=== PATIENT | male | born 1945 | race Two or more races ===

== ENCOUNTER 2023-05-11 18:23 | Inpatient (IN) | payer OTHER ==
[~2023-05-11] VITALS: Ht 177.8 cm; Wt 105.2 kg
[2023-05-11 19:00] VITALS: PULSE 79
[2023-05-11 19:21] LABS: Basophils # (auto) 0.1 10 ^3/uL (0-0.2); Basophils % (auto) 0.5 % (0.0-2.0); Eosinophils # (auto) 0.1 10 ^3/uL (0-0.8); Eosinophils % (auto) 1.4 % (0.0-7.0); Hematocrit 48.5 % (41.0-53.0); Hemoglobin 16.1 g/dL (13.5-17.5); Lymphocytes # (auto) 2.4 10 ^3/uL (0.4-5.4); Lymphocytes % (auto) 24.1 % (10.0-50.0); Mean Corpuscular Hemoglobin 30.7 pg (28.0-32.0); Mean Corpuscular Hgb Conc. 33.3 g/dL (32.0-36.0); Mean Corpuscular Volume 92.3 fL (80.0-100.0); Monocytes # (auto) 0.5 10 ^3/uL (0-1.3); Monocytes % (auto) 4.9 % (0.0-12.0); Neutrophils # (auto) 6.7 10 ^3/uL (1.6-8.6); Neutrophils % (auto) 69.1 % (37.0-80.0); Nucleated Red Blood Cells % 0.1 %; Red Blood Cells 5.25 10^6/uL (4.5-5.90); White Blood Cell 9.8 10^3/uL (4.4-10.8)
[2023-05-11 19:38] LABS: INR 1.16 (0.9-1.15); Partial Thromboplastin Time 22.2 SEC (24.5-34.5); Prothrombin Time 12.1 sec (9.3-11.8)
[2023-05-11] MEDS ORDERED: NITROGLYCERIN 2% OINT 1GM PKG TD STA (19:43)
[2023-05-11] MEDS ORDERED: MORPHINE SULFATE 4 MG/ML SYR/VIAL IV ONE (19:45)
[2023-05-11] MEDS ORDERED: SODIUM CHLORIDE 0.9% 1,000 ML IVB ONE (19:45)
[2023-05-11] MEDS ORDERED: ASPirin 81 mg TAB PO ONE (19:45)
[2023-05-11] MEDS ORDERED: ONDANSETRON HCL 4 MG/2 ML VIAL IV ONE (19:45)
[2023-05-11 19:52] LABS: Albumin 4.2 g/dL (3.4-5.0); Calcium 8.8 mg/dL (8.5-10.1); Magnesium 2.6 mg/dL (1.6-2.6); Potassium 4.7 mmol/L (3.5-5.1)
[2023-05-11 19:55] LABS: BUN/Creatinine Ratio 8.6 (10.0-20.0); Bilirubin, Total 0.6 mg/dL (0.2-1.0); Total Protein 7.8 g/dL (6.4-8.2)
[2023-05-11] MEDS ORDERED: PANTOPRAZOLE 40 MG/10 ML VIAL INJ IV ONE (20:00)
[2023-05-11] MEDS ORDERED: HEPARIN SODIUM (PORCINE) 5000 UNITS/ML 1ML VIAL IV ONE ×2 (20:15→20:30)
[2023-05-11] MEDS ORDERED: TICAGRELOR 90 MG TAB PO ONE (20:15)
[2023-05-11] MEDS: ATORVASTATIN 20 MG TAB PO ONE ×2 (20:20→20:28)
[2023-05-11] MEDS: METOPROLOL TARTRATE 25 MG TAB PO SCH ×2 (20:23→20:28)
[2023-05-11] MEDS ORDERED: HEPARIN SODIUM (PORCINE) 5000 UNITS/ML 1ML VIAL ONE (20:27)
[2023-05-11] MEDS: SODIUM CHLOR 0.9% PF (SALINE LOCK) 10ML VIAL/SYR IV SCH (20:27)
[2023-05-11] MEDS ORDERED: MIDAZOLAM HCL 2MG/2ML 2ml VIAL (1mg/ml) ONE (20:27)
[2023-05-11] MEDS ORDERED: IODIXANOL 320MG/ML 100ML BTL IV ONE (20:27)
[2023-05-11] MEDS ORDERED: VERAPAMIL 2.5MG/ML INJ 2ML VIAL IV ONE ×2 (20:27→21:11)
[2023-05-11] MEDS ORDERED: fentaNYL CITRATE 100 MCG/2 ML VL ONE (20:27)
[2023-05-11] MEDS ORDERED: LIDOCAINE 2%HCL (LOCAL ANESTH.) INJ 20ML MDV ONE (20:28)
[2023-05-11] MEDS ORDERED: InsuLIN REG 1unit/0.01ml Soln (100units/ml) IV ONE (20:30)
[2023-05-11] MEDS ORDERED: ATROPINE SULF 1 MG/10ml SYR ONE (20:39)
[2023-05-11] MEDS ORDERED: EPINEPHrine HCL 1 MG/10 ML SYRG ONE (20:39)
[2023-05-11] MEDS ORDERED: MORPHINE SULFATE INJ 2 MG/ml SYRG IV PRN (21:00)
[2023-05-11] MEDS ORDERED: NITROGLYCERIN 0.4 MG SL TAB SL PRN (21:00)
[2023-05-11] MEDS ORDERED: ONDANSETRON HCL 4 MG/2 ML VIAL IV PRN (21:00)
[2023-05-11] MEDS ORDERED: hydrALAZINE HCL 20 MG/ML VL IV PRN (21:00)
[2023-05-11] MEDS ORDERED: DEXTROSE (50%) 50ML SYRG IV PRN (21:00)
[2023-05-11] MEDS ORDERED: ACETAMINOPHEN 325 MG TAB PO PRN (21:00)
[2023-05-11] MEDS ORDERED: SODIUM CHLORIDE 0.9% 1,000 ML IV SCH (21:00)
[2023-05-11] MEDS ORDERED: HYDROcodone-ACET 5/325MG TAB PO PRN (21:00)
[2023-05-11 21:40] VITALS: BP 84/52; PULSE 67; RESP 15; TEMP 97.8; O2SAT 90
[2023-05-11] MEDS ORDERED: SODIUM CHLORIDE 0.9% 1,000 ML IV ONE (21:45)
[2023-05-11 21:55] VITALS: BP 89/61; PULSE 60; RESP 16; O2SAT 95
[2023-05-11 22:10] VITALS: BP 102/68; PULSE 61; RESP 16; O2SAT 96
[2023-05-11 22:23] LABS: Cholesterol 169 mg/dL (< 200); HDL Cholesterol 34 mg/dL (40-59); LDL Cholesterol 92 mg/dL (< 100); Triglycerides 259 mg/dL (< 150)
[2023-05-11 22:28] VITALS: BP 109/73; PULSE 59; RESP 17; O2SAT 95
[2023-05-11] MEDS: ACCU-CHEK COMFORT CURVE STRIP VI SCH (23:01)
[2023-05-11] MEDS: InsuLIN REG 1unit/0.01ml Soln (100units/ml) SC SCH (23:08)
[2023-05-12] VITALS (12 sets, daily range): BP systolic 86–123; BP diastolic 52–78; PULSE 64–84; RESP 14–19; TEMP 97.8–100.2; O2SAT 95–99
[2023-05-12] MEDS ORDERED: MULT-1018 PO (01:41)
[2023-05-12] MEDS ORDERED: ASPI-543 PO (01:41)
[2023-05-12 03:43] LABS: Basophils # (auto) 0 10 ^3/uL (0-0.2); Basophils % (auto) 0.2 % (0.0-2.0); Eosinophils # (auto) 0 10 ^3/uL (0-0.8); Hematocrit 43.3 % (41.0-53.0); Hemoglobin 14.5 g/dL (13.5-17.5); Lymphocytes # (auto) 0.9 10 ^3/uL (0.4-5.4); Lymphocytes % (auto) 6.5 % (10.0-50.0); Mean Corpuscular Hemoglobin 30.5 pg (28.0-32.0); Mean Corpuscular Hgb Conc. 33.6 g/dL (32.0-36.0); Mean Corpuscular Volume 90.8 fL (80.0-100.0); Monocytes # (auto) 0.6 10 ^3/uL (0-1.3); Monocytes % (auto) 4.1 % (0.0-12.0); Neutrophils # (auto) 12.5 10 ^3/uL (1.6-8.6); Neutrophils % (auto) 89.2 % (37.0-80.0); Red Blood Cells 4.77 10^6/uL (4.5-5.90)
[2023-05-12 04:04] LABS: Albumin 3.3 g/dL (3.4-5.0); Calcium 7.8 mg/dL (8.5-10.1)
[2023-05-12 04:08] LABS: Bilirubin, Total 0.7 mg/dL (0.2-1.0); Total Protein 6.9 g/dL (6.4-8.2)
[2023-05-12 04:40] LABS: BUN/Creatinine Ratio 11.6 (10.0-20.0)
[2023-05-12] MEDS: ACCU-CHEK COMFORT CURVE STRIP VI SCH ×4 (06:30→22:12)
[2023-05-12] MEDS: SODIUM CHLOR 0.9% PF (SALINE LOCK) 10ML VIAL/SYR IV SCH ×3 (06:30→22:00)
[2023-05-12] MEDS: InsuLIN REG 1unit/0.01ml Soln (100units/ml) SC SCH ×4 (06:43→22:11)
[2023-05-12] MEDS: TICAGRELOR 90 MG TAB PO SCH ×2 (08:54→22:01)
[2023-05-12] MEDS: ASPirin 81 mg TAB PO SCH (08:54)
[2023-05-12] MEDS ORDERED: NITROGLYCERIN 50MG/250ML 250 ML IV SCH (09:00)
[2023-05-12] MEDS ORDERED: HEPARIN SODIUM (PORCINE) 5000 UNITS/ML 1ML VIAL IV ONE (09:00)
[2023-05-12] MEDS ORDERED: HEPARIN DRIP/D5W 100UNITS/ML 250 ML IV SCH (09:00)
[2023-05-12] MEDS: METOPROLOL TARTRATE 25 MG TAB PO SCH ×2 (10:00→22:02)
[2023-05-12] MEDS: FAMOTIDINE (10MG/ML) 2ML VL IV SCH (10:07)
[2023-05-12] MEDS ORDERED: SODIUM CHLORIDE 0.9% 1,000 ML IV SCH (11:15)
[2023-05-12] MEDS ORDERED: MORPHINE SULFATE INJ 2 MG/ml SYRG IV PRN ×2 (11:15)
[2023-05-12] MEDS ORDERED: IODIXANOL 320MG/ML 100ML BTL IV ONE ×2 (11:25→12:10)
[2023-05-12] MEDS ORDERED: HEPARIN IN NS 1000Units/500mL 1,500 ML ONE (11:25)
[2023-05-12] MEDS ORDERED: LIDOCAINE 2%HCL (LOCAL ANESTH.) INJ 20ML MDV ONE (11:25)
[2023-05-12] MEDS ORDERED: HEPARIN SODIUM (PORCINE) 5000 UNITS/ML 1ML VIAL ONE ×2 (11:37→12:23)
[2023-05-12] MEDS ORDERED: fentaNYL CITRATE 100 MCG/2 ML VL ONE (11:38)
[2023-05-12] MEDS ORDERED: VERAPAMIL 2.5MG/ML INJ 2ML VIAL IV ONE (11:38)
[2023-05-12] MEDS ORDERED: MIDAZOLAM HCL 2MG/2ML 2ml VIAL (1mg/ml) ONE (11:38)
[2023-05-12 11:39] LABS: Basophils # (auto) 0 10 ^3/uL (0-0.2); Basophils % (auto) 0.2 % (0.0-2.0); Eosinophils # (auto) 0 10 ^3/uL (0-0.8); Hematocrit 44.5 % (41.0-53.0); Hemoglobin 14.6 g/dL (13.5-17.5); Lymphocytes # (auto) 1.4 10 ^3/uL (0.4-5.4); Lymphocytes % (auto) 7.9 % (10.0-50.0); Mean Corpuscular Hemoglobin 29.9 pg (28.0-32.0); Mean Corpuscular Hgb Conc. 32.9 g/dL (32.0-36.0); Mean Corpuscular Volume 90.8 fL (80.0-100.0); Monocytes % (auto) 5.8 % (0.0-12.0); Neutrophils # (auto) 14.8 10 ^3/uL (1.6-8.6); Neutrophils % (auto) 86.1 % (37.0-80.0); Nucleated Red Blood Cells % 0.1 %; Red Cell Distribution Width 13.1 % (11.8-14.3); White Blood Cell 17.2 10^3/uL (4.4-10.8)
[2023-05-12] MEDS ORDERED: SODIUM CHL 0.9% 50 ML ONE (11:43)
[2023-05-12 11:57] LABS: INR 1.26 (0.9-1.15); Partial Thromboplastin Time 42.7 SEC (24.5-34.5)
[2023-05-12] MEDS ORDERED: FUROSEMIDE 20 MG/2 ML VIAL ONE (12:14)
[2023-05-12] MEDS ORDERED: EPINEPHrine HCL 1 MG/10 ML SYRG ONE (12:22)
[2023-05-12] MEDS ORDERED: ATROPINE SULF 1 MG/10ml SYR ONE (12:22)
[2023-05-12 15:51] LABS: Urine Bacteria NONE SEEN /hpf (None Seen); Urine Blood Negative /uL (Negative); Urine Clarity Clear (Clear); Urine Color Yellow (Yellow); Urine Mucus FEW (None Seen); Urine Protein, UAD Negative (Negative); Urine Specific Gravity 1.024 (1.001-1.035); Urine Urobilinogen Normal (Negative); Urine WBC 1 /hpf (0 - 3)
[2023-05-12 16:34] LABS: INR 1.24 (0.9-1.15); Partial Thromboplastin Time 30.8 SEC (24.5-34.5); Prothrombin Time 12.8 sec (9.3-11.8)
[2023-05-12 19:32] LABS: Albumin 3.4 g/dL (3.4-5.0); Calcium 8.2 mg/dL (8.5-10.1); Potassium 4.4 mmol/L (3.5-5.1)
[2023-05-12 19:35] LABS: BUN/Creatinine Ratio 11.6 (10.0-20.0); Bilirubin, Total 1.1 mg/dL (0.2-1.0); Total Protein 6.8 g/dL (6.4-8.2)
[2023-05-12 19:41] LABS: Lactic Acid w/Reflex 2.9 mmol/L (0.4-2.0)
[2023-05-12] MEDS ORDERED: FUROSEMIDE 40 MG/4 ML VIAL IV ONE (20:15)
[2023-05-12] MEDS: ATORVASTATIN 20 MG TAB PO SCH (22:01)
[2023-05-13] VITALS (7 sets, daily range): BP systolic 100–109; BP diastolic 56–71; PULSE 63–95; RESP 14–20; TEMP 98–99.7; O2SAT 91–95
[2023-05-13] MEDS: SODIUM CHLOR 0.9% PF (SALINE LOCK) 10ML VIAL/SYR IV SCH ×3 (06:11→21:01)
[2023-05-13 06:36] LABS: Basophils # (auto) 0 10 ^3/uL (0-0.2); Basophils % (auto) 0.1 % (0.0-2.0); Eosinophils # (auto) 0 10 ^3/uL (0-0.8); Hematocrit 40.3 % (41.0-53.0); Hemoglobin 13.6 g/dL (13.5-17.5); Lymphocytes # (auto) 1.1 10 ^3/uL (0.4-5.4); Lymphocytes % (auto) 6.5 % (10.0-50.0); Mean Corpuscular Hemoglobin 30.3 pg (28.0-32.0); Mean Corpuscular Hgb Conc. 33.7 g/dL (32.0-36.0); Mean Corpuscular Volume 89.9 fL (80.0-100.0); Monocytes # (auto) 1.4 10 ^3/uL (0-1.3); Monocytes % (auto) 8.6 % (0.0-12.0); Neutrophils # (auto) 13.8 10 ^3/uL (1.6-8.6); Neutrophils % (auto) 84.8 % (37.0-80.0); Red Blood Cells 4.48 10^6/uL (4.5-5.90); Red Cell Distribution Width 12.7 % (11.8-14.3); White Blood Cell 16.3 10^3/uL (4.4-10.8)
[2023-05-13 06:47] LABS: Albumin 3.2 g/dL (3.4-5.0); Calcium 8.2 mg/dL (8.5-10.1)
[2023-05-13] MEDS: ACCU-CHEK COMFORT CURVE STRIP VI SCH ×4 (06:49→21:04)
[2023-05-13] MEDS: InsuLIN REG 1unit/0.01ml Soln (100units/ml) SC SCH ×4 (06:49→21:08)
[2023-05-13 06:51] LABS: BUN/Creatinine Ratio 13.8 (10.0-20.0); Bilirubin, Total 1.5 mg/dL (0.2-1.0); Total Protein 6.5 g/dL (6.4-8.2)
[2023-05-13] MEDS ORDERED: FUROSEMIDE 40 MG/4 ML VIAL IV SCH (10:00)
[2023-05-13] MEDS: METOPROLOL TARTRATE 25 MG TAB PO SCH ×2 (10:00→22:11)
[2023-05-13] MEDS ORDERED: POLYETHYLENE GLYCOL 17 GM PWDR PO ONE (10:30)
[2023-05-13] MEDS ORDERED: cefTRIAXone 1GM/50ML D5W 50 ML IV ONE (10:30)
[2023-05-13] MEDS: TICAGRELOR 90 MG TAB PO SCH ×2 (10:39→21:01)
[2023-05-13] MEDS: FAMOTIDINE (10MG/ML) 2ML VL IV SCH (10:39)
[2023-05-13] MEDS: SPIRONOLACTONE 25 MG TAB PO SCH (10:39)
[2023-05-13] MEDS: DOCUSATE SOD 100 MG CAP PO PRN ×2 (10:40→22:58)
[2023-05-13] MEDS: ASPirin 81 mg TAB PO SCH (10:40)
[2023-05-13 11:32] LABS: Potassium 4.2 mmol/L (3.5-5.1)
[2023-05-13 11:38] LABS: BUN/Creatinine Ratio 12.9 (10.0-20.0); Calcium 8.3 mg/dL (8.5-10.1)
[2023-05-13] MEDS: ATORVASTATIN 20 MG TAB PO SCH (21:01)
[2023-05-14] VITALS (7 sets, daily range): BP systolic 92–110; BP diastolic 53–73; PULSE 73–86; RESP 18–20; TEMP 98.5–100; O2SAT 92–96
[2023-05-14] MEDS: SODIUM CHLOR 0.9% PF (SALINE LOCK) 10ML VIAL/SYR IV SCH ×3 (06:00→21:43)
[2023-05-14] MEDS: EMPAGLIFLOZIN 10 MG TAB PO SCH (06:00)
[2023-05-14] MEDS: ACCU-CHEK COMFORT CURVE STRIP VI SCH ×4 (06:00→21:42)
[2023-05-14] MEDS: InsuLIN REG 1unit/0.01ml Soln (100units/ml) SC SCH ×4 (06:02→21:34)
[2023-05-14 07:49] LABS: Basophils # (auto) 0 10 ^3/uL (0-0.2); Basophils % (auto) 0.2 % (0.0-2.0); Eosinophils # (auto) 0 10 ^3/uL (0-0.8); Hematocrit 38.7 % (41.0-53.0); Hemoglobin 13.2 g/dL (13.5-17.5); Lymphocytes # (auto) 1.4 10 ^3/uL (0.4-5.4); Mean Corpuscular Hemoglobin 30.8 pg (28.0-32.0); Mean Corpuscular Hgb Conc. 34.3 g/dL (32.0-36.0); Mean Corpuscular Volume 89.9 fL (80.0-100.0); Monocytes # (auto) 1.5 10 ^3/uL (0-1.3); Monocytes % (auto) 8.9 % (0.0-12.0); Neutrophils # (auto) 14.1 10 ^3/uL (1.6-8.6); Neutrophils % (auto) 82.9 % (37.0-80.0); Red Cell Distribution Width 12.9 % (11.8-14.3)
[2023-05-14 08:00] LABS: Potassium 3.8 mmol/L (3.5-5.1)
[2023-05-14 08:04] LABS: BUN/Creatinine Ratio 17.4 (10.0-20.0); Bilirubin, Total 1.6 mg/dL (0.2-1.0); Calcium 8.4 mg/dL (8.5-10.1); Magnesium 2.3 mg/dL (1.6-2.6); Total Protein 6.9 g/dL (6.4-8.2)
[2023-05-14 09:23] LABS: Free T3 2.28 pg/mL (2.3-4.2); Free T4 (Free Thyroxine) 0.82 ng/dL (0.89-1.76)
[2023-05-14] MEDS: SPIRONOLACTONE 25 MG TAB PO SCH (10:00)
[2023-05-14] MEDS ORDERED: FUROSEMIDE 20 MG TAB PO SCH (10:00)
[2023-05-14] MEDS: cefTRIAXone 1GM/50ML D5W 50 ML IV SCH (11:30)
[2023-05-14] MEDS: FAMOTIDINE (10MG/ML) 2ML VL IV SCH (11:31)
[2023-05-14] MEDS: TICAGRELOR 90 MG TAB PO SCH ×2 (11:32→21:31)
[2023-05-14] MEDS: ASPirin 81 mg TAB PO SCH (11:32)
[2023-05-14] MEDS: METOPROLOL TARTRATE 25 MG TAB PO SCH ×2 (11:33→21:37)
[2023-05-14] MEDS: VALSARTAN 80 MG TAB PO SCH (11:34)
[2023-05-14] MEDS: AZITHROMYCIN 500MG/ 250ML 250 ML IV SCH (11:37)
[2023-05-14] MEDS: DOCUSATE SOD 100 MG CAP PO SCH ×2 (11:38→21:31)
[2023-05-14] MEDS: POLYETHYLENE GLYCOL 17 GM PWDR PO SCH (11:44)
[2023-05-14 13:50] LABS: Urine WBC None Seen /hpf (0 - 3)
[2023-05-14 14:26] LABS: Urine Bacteria NONE SEEN /hpf (None Seen); Urine Blood Negative /uL (Negative); Urine Clarity Clear (Clear); Urine Color Straw (Yellow); Urine Protein, UAD Negative (Negative); Urine Specific Gravity 1.017 (1.001-1.035); Urine Urobilinogen Normal (Negative)
[2023-05-14] MEDS: ATORVASTATIN 20 MG TAB PO SCH (21:28)
[2023-05-15] VITALS (7 sets, daily range): BP systolic 87–104; BP diastolic 47–70; PULSE 61–86; RESP 16–22; TEMP 96.4–98.7; O2SAT 94–100
[2023-05-15] MEDS ORDERED: TEMAZEPAM 15 MG CAP PO ONE (02:30)
[2023-05-15] MEDS: SODIUM CHLOR 0.9% PF (SALINE LOCK) 10ML VIAL/SYR IV SCH ×3 (06:00→21:55)
[2023-05-15] MEDS: InsuLIN REG 1unit/0.01ml Soln (100units/ml) SC SCH ×4 (06:36→21:50)
[2023-05-15] MEDS: EMPAGLIFLOZIN 10 MG TAB PO SCH (06:37)
[2023-05-15] MEDS: ACCU-CHEK COMFORT CURVE STRIP VI SCH ×4 (06:41→21:53)
[2023-05-15 08:47] LABS: Basophils # (auto) 0 10 ^3/uL (0-0.2); Basophils % (auto) 0.1 % (0.0-2.0); Eosinophils # (auto) 0 10 ^3/uL (0-0.8); Eosinophils % (auto) 0.1 % (0.0-7.0); Hematocrit 36.7 % (41.0-53.0); Hemoglobin 12.4 g/dL (13.5-17.5); Lymphocytes % (auto) 7.3 % (10.0-50.0); Mean Corpuscular Hemoglobin 30.5 pg (28.0-32.0); Mean Corpuscular Hgb Conc. 33.8 g/dL (32.0-36.0); Mean Corpuscular Volume 90.1 fL (80.0-100.0); Monocytes % (auto) 7.5 % (0.0-12.0); Neutrophils # (auto) 11.6 10 ^3/uL (1.6-8.6); Red Blood Cells 4.08 10^6/uL (4.5-5.90); Red Cell Distribution Width 12.7 % (11.8-14.3); White Blood Cell 13.7 10^3/uL (4.4-10.8)
[2023-05-15] MEDS: SPIRONOLACTONE 25 MG TAB PO SCH (08:51)
[2023-05-15] MEDS: cefTRIAXone 1GM/50ML D5W 50 ML IV SCH (08:51)
[2023-05-15] MEDS: POLYETHYLENE GLYCOL 17 GM PWDR PO SCH (08:51)
[2023-05-15] MEDS: CARVEDILOL 3.125 MG TAB PO SCH ×2 (08:53→21:46)
[2023-05-15] MEDS: DOCUSATE SOD 100 MG CAP PO SCH ×2 (08:53→21:55)
[2023-05-15] MEDS: FUROSEMIDE 40 MG TAB PO SCH (08:53)
[2023-05-15] MEDS: ASPirin 81 mg TAB PO SCH (08:53)
[2023-05-15] MEDS: TICAGRELOR 90 MG TAB PO SCH ×2 (08:54→21:46)
[2023-05-15] MEDS: VALSARTAN 80 MG TAB PO SCH (08:56)
[2023-05-15] MEDS: FAMOTIDINE (10MG/ML) 2ML VL IV SCH (09:11)
[2023-05-15 09:23] LABS: Potassium 3.5 mmol/L (3.5-5.1)
[2023-05-15 09:27] LABS: Albumin 2.7 g/dL (3.4-5.0); BUN/Creatinine Ratio 18.5 (10.0-20.0); Calcium 8.4 mg/dL (8.5-10.1)
[2023-05-15 09:30] LABS: Bilirubin, Total 1.4 mg/dL (0.2-1.0); Total Protein 6.7 g/dL (6.4-8.2)
[2023-05-15] MEDS ORDERED: CARVEDILOL 12.5 MG TAB PO SCH (10:00)
[2023-05-15] MEDS: AZITHROMYCIN 500MG/ 250ML 250 ML IV SCH (10:00)
[2023-05-15 12:15] LABS: Lactic Acid w/Reflex 2.5 mmol/L (0.4-2.0)
[2023-05-15] MEDS: ATORVASTATIN 20 MG TAB PO SCH (21:47)
[2023-05-16] MEDS: TEMAZEPAM 15 MG CAP PO PRN ×2 (00:38→22:11)
[2023-05-16 05:00] VITALS: BP 97/65; PULSE 61; RESP 20; TEMP 97.9; O2SAT 94
[2023-05-16] MEDS: ACCU-CHEK COMFORT CURVE STRIP VI SCH ×4 (06:43→22:04)
[2023-05-16] MEDS: EMPAGLIFLOZIN 10 MG TAB PO SCH (06:43)
[2023-05-16] MEDS: InsuLIN REG 1unit/0.01ml Soln (100units/ml) SC SCH ×4 (06:45→22:13)
[2023-05-16] MEDS: SODIUM CHLOR 0.9% PF (SALINE LOCK) 10ML VIAL/SYR IV SCH ×3 (06:46→22:03)
[2023-05-16 08:00] VITALS: PULSE 64; PULSE 68; RESP 18
[2023-05-16] MEDS: FAMOTIDINE (10MG/ML) 2ML VL IV SCH (08:30)
[2023-05-16] MEDS: SPIRONOLACTONE 25 MG TAB PO SCH (08:32)
[2023-05-16] MEDS: TICAGRELOR 90 MG TAB PO SCH ×2 (08:33→22:03)
[2023-05-16] MEDS: CARVEDILOL 3.125 MG TAB PO SCH ×2 (08:34→22:04)
[2023-05-16] MEDS: ASPirin 81 mg TAB PO SCH (08:44)
[2023-05-16] MEDS: cefTRIAXone 1GM/50ML D5W 50 ML IV SCH (08:47)
[2023-05-16] MEDS: DOCUSATE SOD 100 MG CAP PO SCH ×2 (08:48→22:04)
[2023-05-16] MEDS: FUROSEMIDE 40 MG TAB PO SCH (08:48)
[2023-05-16] MEDS: AZITHROMYCIN 500MG/ 250ML 250 ML IV SCH (08:48)
[2023-05-16] MEDS: POLYETHYLENE GLYCOL 17 GM PWDR PO SCH (08:49)
[2023-05-16 09:00] VITALS: BP 103/64; PULSE 64; RESP 18; TEMP 98.1; O2SAT 90
[2023-05-16] MEDS ORDERED: OPTISON 3ml Vial for INJ IV ONE ×2 (10:45→10:49)
[2023-05-16 12:14] LABS: Basophils # (auto) 0 10 ^3/uL (0-0.2); Basophils % (auto) 0.3 % (0.0-2.0); Eosinophils # (auto) 0 10 ^3/uL (0-0.8); Eosinophils % (auto) 0.3 % (0.0-7.0); Hematocrit 39.5 % (41.0-53.0); Hemoglobin 13.2 g/dL (13.5-17.5); Lymphocytes # (auto) 1.3 10 ^3/uL (0.4-5.4); Lymphocytes % (auto) 11.5 % (10.0-50.0); Mean Corpuscular Hemoglobin 30.1 pg (28.0-32.0); Mean Corpuscular Hgb Conc. 33.3 g/dL (32.0-36.0); Mean Corpuscular Volume 90.4 fL (80.0-100.0); Monocytes # (auto) 1.1 10 ^3/uL (0-1.3); Neutrophils # (auto) 9.3 10 ^3/uL (1.6-8.6); Neutrophils % (auto) 78.9 % (37.0-80.0); Nucleated Red Blood Cells % 0.1 %; Red Blood Cells 4.37 10^6/uL (4.5-5.90); Red Cell Distribution Width 12.7 % (11.8-14.3); White Blood Cell 11.7 10^3/uL (4.4-10.8)
[2023-05-16 12:37] LABS: Albumin 2.9 g/dL (3.4-5.0); Calcium 8.5 mg/dL (8.5-10.1); Potassium 3.4 mmol/L (3.5-5.1)
[2023-05-16 12:42] LABS: BUN/Creatinine Ratio 20.1 (10.0-20.0)
[2023-05-16] MEDS ORDERED: FUROSEMIDE 40 MG/4 ML VIAL IV ONE (12:45)
[2023-05-16] MEDS ORDERED: POTASSIUM CHL 20 Meq TABLET PO ONE (13:15)
[2023-05-16 16:48] VITALS: BP 103/69; PULSE 53; RESP 18; TEMP 98.2; O2SAT 99
[2023-05-16 20:00] VITALS: PULSE 67; PULSE 69; RESP 18; O2SAT 96
[2023-05-16 22:00] VITALS: BP 98/52; PULSE 103; RESP 20; TEMP 98.7; O2SAT 96
[2023-05-16] MEDS: ATORVASTATIN 20 MG TAB PO SCH (22:03)
[2023-05-17] VITALS (8 sets, daily range): BP systolic 92–106; BP diastolic 53–70; PULSE 55–65; RESP 15–20; TEMP 98–99; O2SAT 94–99
[2023-05-17] MEDS: InsuLIN REG 1unit/0.01ml Soln (100units/ml) SC SCH ×4 (05:25→22:25)
[2023-05-17] MEDS: ACCU-CHEK COMFORT CURVE STRIP VI SCH ×4 (05:25→22:11)
[2023-05-17] MEDS: SODIUM CHLOR 0.9% PF (SALINE LOCK) 10ML VIAL/SYR IV SCH ×2 (05:26→14:00)
[2023-05-17] MEDS: EMPAGLIFLOZIN 10 MG TAB PO SCH (05:26)
[2023-05-17 06:35] LABS: Basophils # (auto) 0 10 ^3/uL (0-0.2); Basophils % (auto) 0.4 % (0.0-2.0); Eosinophils # (auto) 0 10 ^3/uL (0-0.8); Eosinophils % (auto) 0.4 % (0.0-7.0); Hematocrit 38.3 % (41.0-53.0); Hemoglobin 12.8 g/dL (13.5-17.5); Lymphocytes # (auto) 1.1 10 ^3/uL (0.4-5.4); Lymphocytes % (auto) 9.9 % (10.0-50.0); Mean Corpuscular Hgb Conc. 33.4 g/dL (32.0-36.0); Mean Corpuscular Volume 89.7 fL (80.0-100.0); Monocytes % (auto) 9.5 % (0.0-12.0); Neutrophils # (auto) 8.7 10 ^3/uL (1.6-8.6); Neutrophils % (auto) 79.8 % (37.0-80.0); Red Blood Cells 4.26 10^6/uL (4.5-5.90); Red Cell Distribution Width 13.1 % (11.8-14.3); White Blood Cell 10.9 10^3/uL (4.4-10.8)
[2023-05-17 06:56] LABS: BUN/Creatinine Ratio 20.7 (10.0-20.0); Calcium 8.5 mg/dL (8.5-10.1); Magnesium 2.7 mg/dL (1.6-2.6); Potassium 3.5 mmol/L (3.5-5.1)
[2023-05-17 07:20] LABS: INR 1.41 (0.9-1.15); Prothrombin Time 14.5 sec (9.3-11.8)
[2023-05-17] MEDS: cefTRIAXone 1GM/50ML D5W 50 ML IV SCH (08:46)
[2023-05-17] MEDS: AZITHROMYCIN 500MG/ 250ML 250 ML IV SCH (09:16)
[2023-05-17] MEDS ORDERED: FUROSEMIDE 40 MG/4 ML VIAL IV ONE ×2 (10:30→15:15)
[2023-05-17] MEDS: POLYETHYLENE GLYCOL 17 GM PWDR PO SCH (10:45)
[2023-05-17] MEDS: DOCUSATE SOD 100 MG CAP PO SCH ×2 (10:50→22:11)
[2023-05-17] MEDS: TICAGRELOR 90 MG TAB PO SCH ×2 (10:50→22:11)
[2023-05-17] MEDS: ASPirin 81 mg TAB PO SCH (10:50)
[2023-05-17] MEDS: FUROSEMIDE 40 MG TAB PO SCH (10:51)
[2023-05-17] MEDS: VALSARTAN 80 MG TAB PO SCH (10:51)
[2023-05-17] MEDS: SPIRONOLACTONE 25 MG TAB PO SCH (10:52)
[2023-05-17] MEDS: CARVEDILOL 3.125 MG TAB PO SCH ×2 (10:52→22:00)
[2023-05-17] MEDS: DOXYCYCLINE 100 MG TAB/CAP PO SCH ×2 (10:58→22:11)
[2023-05-17] MEDS: ATORVASTATIN 20 MG TAB PO SCH (22:11)
[2023-05-17] MEDS: TEMAZEPAM 15 MG CAP PO PRN (22:21)
[2023-05-18] VITALS (10 sets, daily range): BP systolic 93–111; BP diastolic 54–68; PULSE 51–61; RESP 12–19; TEMP 96.7–98.8; O2SAT 94–99
[2023-05-18] MEDS: EMPAGLIFLOZIN 10 MG TAB PO SCH (06:31)
[2023-05-18] MEDS: ACCU-CHEK COMFORT CURVE STRIP VI SCH ×3 (06:31→17:00)
[2023-05-18] MEDS: InsuLIN REG 1unit/0.01ml Soln (100units/ml) SC SCH ×3 (06:37→17:00)
[2023-05-18] MEDS ORDERED: LIDOCAINE 2%HCL (LOCAL ANESTH.) INJ 20ML MDV ONE (07:57)
[2023-05-18] MEDS ORDERED: FUROSEMIDE 40 MG TAB PO ONE (09:45)
[2023-05-18] MEDS: SPIRONOLACTONE 25 MG TAB PO SCH (09:53)
[2023-05-18] MEDS: CARVEDILOL 3.125 MG TAB PO SCH (09:54)
[2023-05-18] MEDS: VALSARTAN 80 MG TAB PO SCH (09:54)
[2023-05-18] MEDS: FUROSEMIDE 40 MG TAB PO SCH (09:55)
[2023-05-18] MEDS: DOCUSATE SOD 100 MG CAP PO SCH (09:58)
[2023-05-18] MEDS: ASPirin 81 mg TAB PO SCH (09:58)
[2023-05-18] MEDS: DOXYCYCLINE 100 MG TAB/CAP PO SCH (09:58)
[2023-05-18] MEDS: TICAGRELOR 90 MG TAB PO SCH (09:58)
[2023-05-18] MEDS: POLYETHYLENE GLYCOL 17 GM PWDR PO SCH (10:00)
[2023-05-18 11:03] LABS: BUN/Creatinine Ratio 22.6 (10.0-20.0); Calcium 8.4 mg/dL (8.5-10.1); Potassium 3.6 mmol/L (3.5-5.1)
[2023-05-18] MEDS ORDERED: CAR3125T OR (11:20)
[2023-05-18] MEDS ORDERED: TICA90TA PO ×2 (11:20)
[2023-05-18] MEDS ORDERED: SPIR25TA PO (11:20)
[2023-05-18] MEDS ORDERED: FURO1TAB31 PO (11:20)
[2023-05-18] MEDS ORDERED: VALS40TA2 PO (11:20)
[2023-05-18] MEDS ORDERED: ATO40T PO (11:20)
[2023-05-18] MEDS ORDERED: ASPI1TAB20 PO (11:20)
[2023-05-18] MEDS ORDERED: EMPA1TAB PO (11:20)
[2023-05-18] MEDS ORDERED: BLOO1KIT60 XX (11:21)
[2023-05-18 14:26] LABS: Base Excess 0.5 mmol/L (-2.0-2.0)
== END 2023-05-18 19:00 | disposition home or self-care (01) | DRG 246 ==
LOC: ER 18:23 → EDBD 18:23 → TELE 21:16 → TELE-WESTW 22:35 → ICU WEST 05-12 11:39 → TELE-WESTW 05-12 12:15
PROVIDERS: ADMIT Internal Medicine Geriatric Medicine; ATTEND Internal Medicine Geriatric Medicine
PROC: 027034Z Dilation of Coronary Artery, One Artery with Drug-eluting Intraluminal Device, Percutaneous Approach (ICD-10-PCS; principal; 2023-05-11)
PROC: 4A023N7 Measurement of Cardiac Sampling and Pressure, Left Heart, Percutaneous Approach (ICD-10-PCS; 2023-05-11)
PROC: B211YZZ Fluoroscopy of Multiple Coronary Arteries using Other Contrast (ICD-10-PCS; 2023-05-11)
PROC: B240ZZ3 Ultrasonography of Single Coronary Artery, Intravascular (ICD-10-PCS; 2023-05-11)
PROC: B215YZZ Fluoroscopy of Left Heart using Other Contrast (ICD-10-PCS; 2023-05-11)
PROC: 027035Z Dilation of Coronary Artery, One Artery with Two Drug-eluting Intraluminal Devices, Percutaneous Approach (ICD-10-PCS; 2023-05-12)
PROC: B211YZZ Fluoroscopy of Multiple Coronary Arteries using Other Contrast (ICD-10-PCS; 2023-05-12)
PROC: 4A023N7 Measurement of Cardiac Sampling and Pressure, Left Heart, Percutaneous Approach (ICD-10-PCS; 2023-05-12)
PROC: B215YZZ Fluoroscopy of Left Heart using Other Contrast (ICD-10-PCS; 2023-05-12)
PROC: B240ZZ3 Ultrasonography of Single Coronary Artery, Intravascular (ICD-10-PCS; 2023-05-12)
PROC: 5A09357 Assistance with Respiratory Ventilation, Less than 24 Consecutive Hours, Continuous Positive Airway Pressure (ICD-10-PCS; 2023-05-17)
PROC: 4A023N6 Measurement of Cardiac Sampling and Pressure, Right Heart, Percutaneous Approach (ICD-10-PCS; 2023-05-18)
DX: I21.02 ST elevation (STEMI) myocardial infarction involving left anterior descending coronary artery (principal); I50.23 Acute on chronic systolic (congestive) heart failure; I13.0 Hypertensive heart and chronic kidney disease with heart failure and stage 1 through stage 4 chronic kidney disease, or unspecified chronic kidney disease; E11.22 Type 2 diabetes mellitus with diabetic chronic kidney disease; N18.30 Chronic kidney disease, stage 3 unspecified; E03.9 Hypothyroidism, unspecified; E78.5 Hyperlipidemia, unspecified; E11.65 Type 2 diabetes mellitus with hyperglycemia; G47.30 Sleep apnea, unspecified; I25.10 Atherosclerotic heart disease of native coronary artery without angina pectoris; R09.02 Hypoxemia; R79.89 Other specified abnormal findings of blood chemistry; R94.6 Abnormal results of thyroid function studies; I25.5 Ischemic cardiomyopathy; Z79.82 Long term (current) use of aspirin; Z91.199 Patient's noncompliance with other medical treatment and regimen due to unspecified reason; Z95.5 Presence of coronary angioplasty implant and graft; E66.01 Morbid (severe) obesity due to excess calories; Z68.33 Body mass index [BMI] 33.0-33.9, adult; Z79.02 Long term (current) use of antithrombotics/antiplatelets; Z79.899 Other long term (current) drug therapy; Z80.0 Family history of malignant neoplasm of digestive organs; Z79.84 Long term (current) use of oral hypoglycemic drugs
CPT/HCPCS: 36415; 36600; 71045; 76937; 80048; 80053; 80061; 81001; 82805; 82962; 83036; 83605; 83735; 83880; 84439; 84443; 84481; 84484; 85025; 85379; 85610; 85730; 86850; 86900; 86901; 87040; 92941; 92978; 93005; 93306; 93451; 93458; 93571; 94660; 96374; 99152; C1874; C9113; G0378; J0696; J1815; J2250; J2405; J3490; Q9956; Q9967